=== PATIENT | male | born 1970 | race Asian ===

== ENCOUNTER 2022-12-06 08:28 | Day surgery (SDC) | payer OTHER ==
[~2022-12-06] VITALS: Ht 175.3 cm; Wt 72.6 kg
[2022-12-06] MEDS ORDERED: fentaNYL citrate 0.05 MG/ML VIAL ONE (08:55)
[2022-12-06] MEDS ORDERED: diphenhydrAMINE 50 MG/ML VIAL ONE (08:55)
[2022-12-06] MEDS ORDERED: MIDAZOLAM 5 MG/5 ML VIAL ONE (08:56)
[2022-12-06] MEDS ORDERED: LIDOCAINE 2% 100 MG/5 ML UJET TP ONE (08:56)
[2022-12-06] MEDS ORDERED: MIDAZOLAM 5 MG/5 ML VIAL IV ONE (09:35)
[2022-12-06] MEDS ORDERED: fentaNYL citrate 0.05 MG/ML VIAL IVP ONE (09:35)
== END 2022-12-06 10:33 | disposition home or self-care (01) ==
LOC: MDS 08:28 → MMU 08:28 → MDS 10:33
PROVIDERS: ATTEND Internal Medicine Gastroenterology
DX: K62.5 Hemorrhage of anus and rectum (principal); K64.9 Unspecified hemorrhoids; E78.5 Hyperlipidemia, unspecified; Z20.822 Contact with and (suspected) exposure to COVID-19
CPT/HCPCS: 45378; 87426; J2250; J3010; J1200

== ENCOUNTER 2023-07-12 07:05 | Day surgery (SDC) | payer OTHER ==
[~2023-07-12] VITALS: Ht 175.3 cm; Wt 72.6 kg
[2023-07-12] MEDS ORDERED: BUPIVACAINE-MPF 0.25% 30 ML VIAL INJ ONE (08:11)
[2023-07-12] MEDS ORDERED: LIDOCAINE/EPI MPF 1%1:200000 30 ML VIAL INJ ONE (08:11)
[2023-07-12] MEDS ORDERED: HYDROGEN PEROXIDE 3% 240 ML BTL TP ONE (08:12)
[2023-07-12] MEDS ORDERED: MIDAZOLAM 5 MG/5 ML VIAL ONE (10:01)
[2023-07-12] MEDS ORDERED: fentaNYL citrate 0.05 MG/ML VIAL ONE (10:01)
[2023-07-12] MEDS ORDERED: HYDROmorphone 1 MG/ML AMP IVP PRN (10:45)
[2023-07-12] MEDS ORDERED: ONDANSETRON 4 MG/2 ML VIAL IVP PRN (10:45)
[2023-07-12] MEDS ORDERED: PROPOFOL 200 MG/20 ML VIAL IV ONE (11:00)
== END 2023-07-12 12:40 | disposition home or self-care (01) ==
LOC: MMU 07:05 → MDS 07:05
PROVIDERS: ATTEND Surgery
DX: K64.0 First degree hemorrhoids (principal); K64.8 Other hemorrhoids; E78.00 Pure hypercholesterolemia, unspecified; Z79.899 Other long term (current) drug therapy
CPT/HCPCS: 46260; 71045; 88304; 93005; J2001; J2250; J2704; J3010; J3490; J7120